=== PATIENT | female | born 1955 | race Caucasian/White ===

== ENCOUNTER 2017-08-20 09:12 | Emergency (ER) | payer BC ==
[~2017-08-20] VITALS: Ht 160 cm; Wt 63.6 kg
[2017-08-20 09:14] VITALS: Ht 160 cm; Wt 63.6 kg
[2017-08-20 09:45] VITALS: BP 128/82
== END 2017-08-20 10:28 | disposition home or self-care (01) ==
LOC: D.ER 09:12
DX: S01.81XA Laceration without foreign body of other part of head, initial encounter (principal); W19.XXXA Unspecified fall, initial encounter; Y93.89 Activity, other specified; Y92.019 Unspecified place in single-family (private) house as the place of occurrence of the external cause